=== PATIENT | female | born 1995 | race Two or more races ===

== ENCOUNTER 2017-05-30 16:21 | Emergency (ER) | payer SELFPAY ==
--- NOTE | 2017-05-30 17:15 | NUR ---
PATIENT LEFT WITHOUT BEING SEEN BY DR. SALDIVAR. NO FURTHER CARE PROVIDED FOR PATIENT.
== END 2017-05-30 17:15 | disposition left against medical advice (07) ==
LOC: MED 16:21
DX: K14.6 Glossodynia (principal); Z53.21 Procedure and treatment not carried out due to patient leaving prior to being seen by health care provider

== ENCOUNTER 2018-07-26 13:28 | Emergency (ER) | payer OTHER ==
[~2018-07-26] VITALS: Ht 157.5 cm; Wt 54.4 kg
[2018-07-26 13:30] VITALS: BP 104/60
--- NOTE | 2018-07-26 13:40 | NUR ---
PT PROVIDED URINE AT THIS TIME.
--- NOTE | 2018-07-26 13:45 | NUR ---
23 Y/O F W/C/O CRAMPING AND POSTIVE TEST AT URGENT CARE. URGENT CARE TOLD PT TO COME HERE TO GET EVALUATED. PT TESTED POSITVE A WEEK AGO FOR PREGNACY. FIRST . PT STATES CRAMPING IN LOWER ABD. PT DENIES N/V/D; SKIN IS INTACT, PINK/WARM/DRY; AAOX4, PERRL, WITH EVEN AND STEADY GAIT; LUNGS CLEAR BL, BREATHING UNLABORED; HR EVEN AND REGULAR, BL PERIPHERAL PULSES PRESENT; BS ACTIVE X4, NO TENDERNESS TO PALPATION, NO HEPATOSPLENOMEGALLY PALPATED, RESONANT TO PERCUSSION; PT DENIES ANY FEVER, CP, SOB, OR COUGH AT THIS TIME; PT STATES 0/10 PAIN AT THIS TIME BUT FEELS CRAMPING; VSS; PATIENT POSITIONED FOR COMFORT; HOB ELEVATED; BEDRAILS UP X2; BED DOWN. RX: NONE PMH: NONE ALLERGIES: NKA
[2018-07-26 14:15] LABS: BASOPHILS % (AUTO) 0.3 % (0.0-2.0); EOSINOPHILS # (AUTO) 0.2 K/uL (0-0.4); EOSINOPHILS % (AUTO) 2.4 % (0.0-4.0); HEMATOCRIT 42.3 % (36-48); LYMPHOCYTES # (AUTO) 2.2 K/uL (2.5-16.5); LYMPHOCYTES % (AUTO) 26.7 % (20.5-51.1); MEAN CORPUSCULAR HEMOGLOBIN 29 pg (27-31); MEAN CORPUSCULAR HGB CONC 33 g/dL (33-37); MEAN CORPUSCULAR VOLUME 87.8 fL (80-94); MONOCYTES # (AUTO) 0.6 K/uL (0.8-1.0); MONOCYTES % (AUTO) 7.6 % (1.7-9.3); NEUTROPHILS # (AUTO) 5.3 K/uL (1.8-7.7); PLATELET COUNT (AUTO) 238 K/uL (140-450); RED BLOOD CELL COUNT(AUTO) 4.82 MIL/uL (4.20-5.40); RED CELL DISTRIBUTION WIDTH 13.7 % (11.6-13.7); WHITE BLOOD COUNT (AUTO) 8.4 K/uL (4.8-10.8)
[2018-07-26 14:27] LABS: APPEARANCE,URINE SLIGHTLY HAZY (CLEAR); BILIRUBIN,URINE NEGATIVE (NEGATIVE); BLOOD, URINE 2+ (NEGATIVE); COLOR,URINE STRAW (YELLOW); LEUKOCYTE ESTERASE ,URINE 2+ (NEGATIVE); NITRITE, URINE NEGATIVE (NEGATIVE); UGLUCOSE NEGATIVE (NEGATIVE)
[2018-07-26 14:41] LABS: RBC,URINE 0-5 (RARE) /HPF (0-5); WBC,URINE 16-25 (MOD) /HPF (0-5)
[2018-07-26 14:42] LABS: ALBUMIN 3.8 g/dL (3.4-5.0); ANION GAP 12.4 (8-16); CARBON DIOXIDE 25.3 mmol/L (21-32); CREATININE 0.8 mg/dL (0.6-1.3); POTASSIUM 3.7 mmol/L (3.5-5.1); TOTAL BILIRUBIN 0.4 mg/dL (0.0-1.0)
--- NOTE | 2018-07-26 15:26 | NUR ---
PT. RESTING COMFORTABLY IN BED, RR EVEN AND UNLABORED. VSS. WILL CONTINUE TO MONITOR.
--- NOTE | 2018-07-26 16:29 | NUR ---
PT. RESTING COFMORTABLY IN BED, RR EVEN AND UNLABORED. WILL CONTINUE TO MONITOR
[2018-07-26 17:13] VITALS: BP 113/66
--- NOTE | 2018-07-26 17:14 | NUR ---
Patient discharged with v/s stable. Written and verbal after care instructions given and explained. Patient alert, oriented and verbalized understanding of instructions. Ambulatory with steady gait. All questions addressed prior to discharge. ID band removed. Patient advised to follow up with PMD. Rx of MACROBID given. Patient educated on indication of medication including possible reaction and side effects. Opportunity to ask questions provided and answered. LAB RESULTS HANDED TO PT ALONG WITH ULTRASOUND READ TO F/U WITH [facility]
== END 2018-07-26 17:14 | disposition home or self-care (01) ==
LOC: MED 13:28
DX: O23.41 Unspecified infection of urinary tract in pregnancy, first trimester (principal); Z3A.01 Less than 8 weeks gestation of pregnancy
CPT/HCPCS: 36415; 76830; 80053; 81001; 81025; 83690; 84702; 85025; 86900; 86901; 87086; 87186; 93976; 99285; Q0092

== ENCOUNTER 2018-11-23 21:25 | Emergency (ER) | payer OTHER ==
[~2018-11-23] VITALS: Ht 157.5 cm; Wt 54.4 kg
[2018-11-23 21:45] VITALS: BP 118/77
--- NOTE | 2018-11-23 23:29 | NUR ---
Patient ambulated to bed 5. RN evaluating patient at bedside.
--- NOTE | 2018-11-23 23:30 | NUR ---
23/F CO: FLULIKE SYMPTOMS. COUGH AND COLD CONGESTIONS FOR WEEKS. EVEN UNLABORED BREATHING. AFEBRILE. AOX4. ABLE TO VERBALIZE NEEDS. DENIES PAIN. BED IN LOWEST POSITION. WILL CONTINUE TO MONITOR. DENIES HX. DENIES RX. MADE AWARE.
--- NOTE | 2018-11-23 23:40 | NUR ---
Dr. Darnell evaluating patient at bedside.
[2018-11-24 00:29] VITALS: BP 118/77
--- NOTE | 2018-11-24 00:30 | NUR ---
Patient discharged with v/s stable. Written and verbal after care instructions given and explained. Patient verbalized understanding. Ambulatory with steady gait. All questions addressed prior to discharge. Advised to follow up with PMD.
== END 2018-11-24 00:30 | disposition home or self-care (01) ==
LOC: MED 21:25
DX: O99.512 Diseases of the respiratory system complicating pregnancy, second trimester (principal); J06.9 Acute upper respiratory infection, unspecified; Z3A.22 22 weeks gestation of pregnancy
CPT/HCPCS: 87804; 99283